=== PATIENT | male | born 1985 | race American Indian/Alaskan Native ===

== ENCOUNTER 2022-03-04 19:55 | Emergency (ER) | payer MEDICARE ==
[2022-03-05] MEDS ORDERED: TETANUS,DIPH,PERTUSS(ACELL) VACCINE 0.5 ML SYRINGE IM ONE (01:12)
[2022-03-05] MEDS ORDERED: LIDOCAINE-MPF (1%) 10 MG/1 ML VIAL 5 ML INFILTRATI ONE (01:12)
--- NOTE | 2022-03-05 01:22 | Emergency Department Report ---
- General Chief complaint: Wound/Laceration Stated complaint: CUT FINGER Time Seen by Provider: 03/05/22 01:12 Source: patient Mode of arrival: Ambulatory Limitations: No Limitations - History of Present Illness Initial comments: cut finger on sharp objetr in [place] 3 days ago while cleaning dishes complaint: laceration -: days(s) (3 days ao) Location: generalized Severity: mild Quality: aching Consistency: constant Improves with: none Context: none Associated symptoms: denies other symptoms - Related Data Previous Rx's Medication Instructions Recorded Last Taken Type Chlorhexidine Gluconate [Hibiclens] 10 ml TP BID #240 liquid 03/05/22 Unknown Rx Sulfamethoxazole/Trimethoprim 1 each PO BID #20 tablet 03/05/22 Unknown Rx [Bactrim Ds] cephALEXin [Keflex] 500 mg PO Q6HR #40 capsule 03/05/22 Unknown Rx Allergies Allergy/AdvReac Type Severity Reaction Status Date / Time No Known Allergies Allergy Verified 03/04/22 20:29 Abscess Boil HPI - HPI Chief Complaint: Wound/Laceration Stated Complaint: CUT FINGER Time Seen by Provider: 03/05/22 01:12 Home Medications: Previous Rx's Medication Instructions Recorded Last Taken Type Chlorhexidine Gluconate [Hibiclens] 10 ml TP BID #240 liquid 03/05/22 Unknown Rx Sulfamethoxazole/Trimethoprim 1 each PO BID #20 tablet 03/05/22 Unknown Rx [Bactrim Ds] cephALEXin [Keflex] 500 mg PO Q6HR #40 capsule 03/05/22 Unknown Rx Allergies/Adverse Reactions: Allergies Allergy/AdvReac Type Severity Reaction Status Date / Time No Known Allergies Allergy Verified 03/04/22 20:29 ED Review of Systems ROS: Stated complaint: CUT FINGER Other details as noted in HPI Comment: All other systems reviewed and negative ED Past Medical Hx - Medications Home Medications: Home Medications Medication Instructions Recorded Confirmed Last Taken Type Chlorhexidine Gluconate [Hibiclens] 10 ml TP BID #240 liquid 03/05/22 Unknown Rx Sulfamethoxazole/Trimethoprim 1 each PO BID #20 tablet 03/05/22 Unknown Rx [Bactrim Ds] cephALEXin [Keflex] 500 mg PO Q6HR #40 capsule 03/05/22 Unknown Rx ED Physical Exam - General Limitations: No Limitations General appearance: alert, in no apparent distress - Head Head exam: Present: atraumatic, normocephalic - Eye Eye exam: Present: normal appearance - ENT ENT exam: Present: mucous membranes moist - Neck Neck exam: Present: normal inspection - Respiratory Respiratory exam: Present: normal lung sounds bilaterally. Absent: respiratory distress - Cardiovascular Cardiovascular Exam: Present: regular rate, normal rhythm. Absent: systolic murmur, diastolic murmur, rubs, gallop - GI/Abdominal GI/Abdominal exam: Present: soft, normal bowel sounds - Rectal Rectal exam: Present: deferred - Extremities Exam Extremities exam: Present: normal inspection, tenderness, normal capillary refill, other (To the medial aspect of the second phalange he has a flap-like laceration with local cellulitis and pus drainage. No Kanavel signs B.) - Back Exam Back exam: Present: normal inspection - Neurological Exam Neurological exam: Present: alert, oriented X3 - Psychiatric Psychiatric exam: Present: normal affect, normal mood - Skin Skin exam: Present: warm, dry, intact, normal color. Absent: rash ED Course Vital Signs 03/04/22 19:58 Temperature 98.8 F Pulse Rate 86 Respiratory 18 Rate Blood Pressure 138/93 O2 Sat by Pulse 99 Oximetry ED Medical Decision Making - Medical Decision Making 26-year-old male status post wound laceration to finger injury conditions with resulting cellulitis swelling and wound discharge, feeling cold antibiotics "and systemic maintain good follow-up for wound Critical care attestation.: If time is entered above; I have spent that time in minutes in the direct care of this critically ill patient, excluding procedure time. ED Disposition Clinical Impression: Cellulitis, finger Disposition: 01 HOME / SELF CARE / HOMELESS Is pt being admited?: No Does the pt Need Aspirin: No Condition: Stable Instructions: Cellulitis, Adult, Cellulitis, Adult, [id number] Prescriptions: Sulfamethoxazole/Trimethoprim [Bactrim Ds] 1 each PO BID #20 tablet Chlorhexidine Gluconate [Hibiclens] 10 ml TP BID #240 liquid cephALEXin [Keflex] 500 mg PO Q6HR #40 capsule Referrals: [facility] [Provider Group] - 3-5 Days
[2022-03-05 02:58] VITALS: BP 144/86
== END 2022-03-05 02:54 | disposition home or self-care (01) ==
LOC: ED 19:55
DX: L03.019 Cellulitis of unspecified finger (principal)
CPT/HCPCS: 90471; 90715; 96372; 99282; J0696; J3490